=== PATIENT | female | born 1965 | race Caucasian/White ===

== ENCOUNTER → 2021-05-31 | Outpatient (CLI) | payer SELFPAY ==
--- NOTE | 2021-05-31 17:08 | Diagnostic Imaging Report ---
HISTORY: Peripheral vascular disease, diabetes TECHNIQUE: Ankle-brachial indices obtained of the lower extremities using ultrasound and Doppler COMPARISON: None FINDINGS: The right brachial artery pressure measures 142 mmHg. The left brachial artery measures 147. The posterior tibial arteries measure 160 on the right and 161 on the left. The dorsalis pedis measures 187 on the right and 177 on the left. The great toe measures 151 on the right and 142 on the left. These pressures result in an ankle-brachial index of 1.27 on the right and 1.20 on the left. Toe brachial indices are 1.03 on the right and 0.97 on the left. IMPRESSION: 1. Normal ankle-brachial indices bilaterally. Dictated by: Dictated on workstation # [id number]
== END ==
LOC: RAD 15:15
PROVIDERS: ATTEND Pediatrics
DX: E11.51 Type 2 diabetes mellitus with diabetic peripheral angiopathy without gangrene (principal)
CPT/HCPCS: 93922

== ENCOUNTER 2022-06-22 10:08 | Emergency (ER) | payer MEDICARE ==
[~2022-06-22] VITALS: Ht 162 cm; Wt 142.8 kg
--- NOTE | 2022-06-22 10:26 | ED Fall/Injury ---
General Stated Complaint: FALL, HEAD INJ, WEAKNESS Source: patient Exam Limitations: no limitations History of Present Illness Date Seen by Provider: Jun 22, 2022 Time Seen by Provider: 10:14 Initial Comments 56-year-old female presents to the emergency department. While she was at work at the [employer]. She states she simply tripped falling and hitting her nose on the floor. She thinks she may have broken her nose. She also has pain in her right shoulder and left knee. She does have chronic pain in her left knee but feels it is worse after her fall. She has been able to bear weight since the event. She is not on any blood thinning medications. She did not lose consciousness. No nausea or vomiting. She did have a nosebleed for about 5 minutes off and on after the event but it seems to have subsided now. All other systems reviewed and negative except documented per HPI. Voice recognition software was used to help create this chart Allergies and Home Medications Allergies Coded Allergies: No Known Drug Allergies (Unverified , 06/22/22) Patient Home Medication List Home Medication List Reviewed: Yes Review of Systems Review of Systems Constitutional: no symptoms reported Past Bxrqezy-Fzuuqk-Jbqcur Hx Patient Social History Tobacco Use?: No Use of E-Cig and/or Vaping dev: No Substance use?: No Alcohol Use?: No Family Medical History Reviewed Nursing Family Hx No Pertinent Family Hx Physical Exam Vital Signs Vital Signs - First Documented 06/22/22 10:18 Temp 36.4 Pulse 103 Resp 16 B/P (MAP) 173/77 (109) Pulse Ox 97 Capillary Refill : Height, Weight, BMI Height: '" Weight: lbs. oz. kg; BMI Method: General Appearance: WD/WN, no apparent distress HEENT: PERRL/EOMI, TMs normal, pharynx normal, other (Small abrasion across the bridge of her nose. Superficial. Intranasally there is no septal hematoma no bleeding.) Neck: non-tender, full range of motion, supple, normal inspection Cardiovascular: regular rate, rhythm, no murmur Respiratory: chest non-tender, lungs clear, normal breath sounds, no respiratory distress, no accessory muscle use Gastrointestinal: normal bowel sounds, non tender, soft, no organomegaly Back: normal inspection, no vertebral tenderness Extremities: other (Mild tenderness right anterior shoulder. No bruising or deformity. Neurovascular motor and sensory intact distally. Mild tenderness to left knee. Knee joint overall is stable negative anterior posterior drawer Hiren and weightbearing. 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, no motor/sensory deficits, alert, normal mood/affect, oriented x 3 Skin: normal color, warm/dry, other (Abrasion to the bridge of the nose as documented above) Progress/Results/Core Measures Results/Orders My Orders Orders - HUBER FAUSTIN DO Shoulder, Right, 3 Views (06/22/22 10:22) Knee, Left, 3 Views (06/22/22 10:22) Acetaminophen Tablet (Tylenol Tablet) (06/22/22 10:30) Medications Given in ED Current Medications Medications Dose Ordered Sig/Kumar Route Start Time Stop Time Status Last Admin Dose Admin Acetaminophen 1,000 mg ONCE ONCE PO 06/22/22 10:30 06/22/22 10:31 DC 06/22/22 10:51 1,000 MG Vital Signs/I&O 06/22/22 10:18 Temp 36.4 Pulse 103 Resp 16 B/P (MAP) 173/77 (109) Pulse Ox 97 Departure Communication (Admissions) I have independently reviewed his x-rays of the right shoulder and left knee. They show no acute fracture or bony abnormality. She has no evidence of significant head injury with a GCS of 15, no focal deficits. No indication for head CT at this time. She is not on blood thinning medications. This seems as purely mechanical fall is no indication for lab testing. She is discharged in stable condition with supportive care. Impression Primary Impression: Right shoulder pain Qualified Codes: M25.511 - Pain in right shoulder Additional Impressions: Left knee pain Qualified Codes: M25.562 - Pain in left knee Fall Qualified Codes: W19.XXXA - Unspecified fall, initial encounter Disposition: 01 HOME, SELF-CARE Condition: Stable Departure-Patient Inst. Referrals: SONNY JOHN DO (PCP/Family) Primary Care Physician Patient Instructions: Preventing Falls ED Add. Discharge Instructions: Use ibuprofen and Tylenol as needed for pain. Walk as you are able. Walk with assistive devices when needed. Return to the emergency department for any severe concerns HUBER FAUSTIN DO Jun 22, 2022 10:26
[2022-06-22] MEDS ORDERED: ACETAMINOPHEN 500 MG TAB (TYLENOL) PO ONE (10:30)
--- NOTE | 2022-06-22 11:30 | Diagnostic Imaging Report ---
EXAMINATION: Right shoulder 2 or more views HISTORY: Shoulder injury COMPARISON: None available. FINDINGS: Shoulder alignment is normal. No fracture is seen. There is mild acromioclavicular osteoarthritis. IMPRESSION: 1. No fracture seen in the right shoulder. Dictated by: Dictated on workstation # [id number]
--- NOTE | 2022-06-22 11:31 | Diagnostic Imaging Report ---
INDICATION: Fall earlier today, left knee pain TECHNIQUE: 3 views of the left knee CORRELATION STUDY: None FINDINGS: Marked joint space during medially. Marginal osteophyte formation both medially and laterally. Marked narrowing at the patellofemoral compartment with osteophyte formation distal anterior femur as well as superior and inferior pole spurring. No lipohemarthrosis . No soft tissue foreign body. IMPRESSION: 1. Negative for acute bony abnormality of the knee. Advanced right compartment degenerative changes left knee. Dictated by: Dictated on workstation # [id number]
[2022-06-22 12:02] VITALS: BP 162/80
== END 2022-06-22 12:02 | disposition home or self-care (01) ==
LOC: EDUNIT# 10:08 → ER 10:09
DX: S00.31XA Abrasion of nose, initial encounter (principal); M25.511 Pain in right shoulder; M25.562 Pain in left knee; W01.198A Fall on same level from slipping, tripping and stumbling with subsequent striking against other object, initial encounter; Y92.513 Shop (commercial) as the place of occurrence of the external cause; Y99.0 Civilian activity done for income or pay
CPT/HCPCS: 73030; 73562